=== PATIENT | female | born 1980 | race Caucasian/White ===

== ENCOUNTER 2020-02-25 23:12 | Observation (INO) ==
[2020-02-25 22:37] LABS: Bacteria,Urine Few per hpf (None-Few); Bilirubin,Urine Small (Negative); Blood,Urine Small (Negative); Clarity,Urine Turbid (Clear); Color,Urine Dark-Yellow (Yellow); Glucose,Urine (UA) 30 mg/dL (Normal); Hyaline Casts,Urine Many per lpf (None Seen); Ketones,Urine Trace mg/dL (Negative); Leukocyte Esterase,Urine Trace (Negative); Mucus,Urine Many per lpf (None-Few); Nitrite,Urine Negative (Negative); Protein,Urine >=600 mg/dL (Neg-Trace); RBC,Urine 15-30 per hpf (0-3); Renal Epithelial Cells,Urine Few per hpf (None-Few); Specific Gravity,Urine > 1.030 (1.010-1.025); Squamous Epithelial Cell,Urine Moderate per hpf (None-Few); Transitional Epi Cells,Urine Few per hpf (None-Few)
[2020-02-25 22:55] LABS: Alanine Aminotransferase 12 Units/L (7-52); Aspartate Amino Transferase 15 Units/L (13-39); BUN/Creatinine Ratio 12 (6-26); Blood Urea Nitrogen 8 mg/dL (6-20); Lactate Dehydrogenase 169 Units/L (140-271); Uric Acid 6.2 mg/dL (2.3-7.6); eGFR For African Americans > 60 (> 60); eGFR For Non-African Americans > 60 (> 60)
[~2020-02-25 23:12] MED LIST: Ringers Solution, Lactated 1,000 ML IVC ONE; Ringers Solution, Lactated 1,000 ML IVC SCH; Ringers Solution, Lactated 1,000 ML ONE
[2020-02-25] MEDS ORDERED: Ondansetron 4 MG/2 ML VIAL IVP PRN (23:55)
[2020-02-25] MEDS ORDERED: Nicotine 14 MG PATCH.TD24 TD SCH (23:56)
[2020-02-26 00:11] LABS: Candida DNA DETECTED (Not Detect); Gardnerella DNA DETECTED (Not Detect); Trichomonas DNA Not Detected (Not Detect)
[2020-02-26 00:50] LABS: Amphetamine Screen,Urine Negative ng/mL (Cutoff=1000); Barbiturate Screen,Urine Negative ng/mL (Cutoff=200); Benzodiazepines Screen,Urine Negative ng/mL (Cutoff=200); Cannabinoid Screen,Urine Negative ng/mL (Cutoff = 50); Cocaine Screen,Urine Negative ng/mL (Cutoff= 300); Opiate Screen,Urine Negative ng/mL (Cutoff=300); Phencyclidine Screen,Urine Negative ng/mL (Cutoff=25)
[2020-02-26 00:55] LABS: Glucose 89 mg/dL (70-105)
[2020-02-26] MEDS ORDERED: cefTRIAXone 2,000 MG in Water for inj. (sterile) 20 ML IVP SCH (01:00)
[2020-02-26 01:25] LABS: Platelet Count 376 K/mcL (140-400)
[2020-02-26] MEDS: Betamethasone Acet/SodPhos 30 MG/5 ML VIAL IM SCH (01:35)
[2020-02-26] MEDS ORDERED: Terconazole Vag CRM 20 GM TUBE VG SCH ×2 (01:45→21:00)
[2020-02-26 01:46] LABS: Protein/Creatinine Ratio,Urine 1.07 mg/mg (0.00-0.20)
[2020-02-26 02:07] LABS: Basophils % 0.2 %; Eosinophils # 0.2 K/mcL (0.0-0.6); Eosinophils % 1.1 %; Hematocrit 31.7 % (35.3-44.9); Hemoglobin 10.6 g/dL (11.5-15.4); Immature Granulocytes % 0.7 % (0-4); Lymphocytes # 3.1 K/mcL (0.6-4.6); Mean Corpuscular HGB Conc 33.4 g/dL (31.6-35.5); Mean Corpuscular Hemoglobin 29.8 pg (28.0-33.3); Mean Platelet Volume 11.3 fL (9.4-12.4); Monocytes % 5.9 %; Neutrophils # 12.1 K/mcL (1.6-8.9); Red Blood Count 3.56 M/mcL (3.82-4.97); Segmented Neutrophils % 73.1 %; White Blood Count 16.6 K/mcL (4.3-11.1)
[2020-02-26] MEDS ORDERED: *HR* Buprenorphine HCl 8 MG TAB.SUBL SL SCH ×2 (06:00→21:00)
[2020-02-26] MEDS ORDERED: Perflutren Lipid Microsphere 1.3 ML in 0.9 % Sodium Chloride 8.7 ML IVP PRN (08:52)
[2020-02-26] MEDS ORDERED: metroNIDAZOLE 500 MG TABLET PO SCH (09:00)
[2020-02-26] MEDS ORDERED: Ondansetron 4 MG/2 ML VIAL IVP PRN (16:28)
[2020-02-26] MEDS ORDERED: Ringers Solution, Lactated 1,000 ML IVC SCH (16:28)
[2020-02-26] MEDS: *HR* Buprenorphine HCl 8 MG TAB.SUBL SL SCH (17:17)
[2020-02-26] MEDS ORDERED: MOM Conc 10 ML UD.LIQ PO SCH (21:00)
[2020-02-26] MEDS: metroNIDAZOLE 500 MG TABLET PO SCH (21:00)
[2020-02-26] MEDS ORDERED: Betamethasone Acet/SodPhos 30 MG/5 ML VIAL IM SCH (23:00)
[2020-02-26] MEDS ORDERED: Nicotine 14 MG PATCH.TD24 TD SCH (23:56)
[2020-02-27 00:24] LABS: Total Volume 24 Hour,Urine 0.57 Liters (0.60-1.60)
[2020-02-27] MEDS ORDERED: cefTRIAXone 2,000 MG in Water for inj. (sterile) 20 ML IVP SCH (01:00)
[2020-02-27] MEDS ORDERED: Ringers Solution, Lactated 1,000 ML ONE (01:30)
[2020-02-27] MEDS: Betamethasone Acet/SodPhos 30 MG/5 ML VIAL IM SCH (02:05)
[2020-02-27] MEDS: *HR* Buprenorphine HCl 8 MG TAB.SUBL SL SCH (07:19)
[2020-02-27 07:46] VITALS: BP 125/77
[2020-02-27] MEDS: metroNIDAZOLE 500 MG TABLET PO SCH (08:14)
[2020-02-27 09:51] LABS: Hematocrit 26.1 % (35.3-44.9); Mean Corpuscular Hemoglobin 29.6 pg (28.0-33.3); Mean Corpuscular Volume 89.7 fL (83.0-100.0); Mean Platelet Volume 11.2 fL (9.4-12.4); Platelet Count 292 K/mcL (140-400); Red Blood Count 2.91 M/mcL (3.82-4.97); Red Cell Distribution Width 13.3 % (11.5-14.5)
[2020-02-27 09:55] LABS: Hemoglobin 8.6 g/dL (11.5-15.4)
== END 2020-02-27 10:44 | disposition home or self-care (01) ==
LOC: 1NENULAB → 1NENUOBS 02-26 16:21
PROVIDERS: ADMIT Advanced Practice Midwife; ATTEND Advanced Practice Midwife